=== PATIENT | female | born 1980 ===

== ENCOUNTER 2017-06-01 00:20 | Emergency (ER) | payer OTHER ==
[~2017-06-01] VITALS: Ht 165.1 cm; Wt 61.2 kg
[2017-06-01 00:31] VITALS: Ht 165.1 cm; Wt 61.2 kg
[2017-06-01 03:19] VITALS: BP 110/66
== END 2017-06-01 03:19 | disposition home or self-care (01) ==
LOC: ED 00:20
DX: J45.901 Unspecified asthma with (acute) exacerbation (principal); Z88.0 Allergy status to penicillin
CPT/HCPCS: J7512; J7620; Q0092